=== PATIENT | male | born 1975 | race Caucasian/White ===

== ENCOUNTER 2020-07-12 17:22 | Emergency (ER) | payer SELFPAY ==
[~2020-07-12] VITALS: Ht 170.2 cm; Wt 73.0 kg
[2020-07-12 17:34] VITALS: BP 131/71
== END 2020-07-12 17:49 | disposition left against medical advice (07) ==
LOC: ER 17:22
DX: Z53.21 Procedure and treatment not carried out due to patient leaving prior to being seen by health care provider (principal)
CPT/HCPCS: 93005